=== PATIENT | male | born 1990 | race Two or more races ===

== ENCOUNTER 2018-07-20 02:48 | Emergency (ER) | payer MEDICAID ==
[~2018-07-20] VITALS: Ht 160 cm; Wt 73.1 kg
[2018-07-20 04:22] VITALS: BP 125/87
== END 2018-07-20 04:22 | disposition home or self-care (01) ==
LOC: ED 02:48
DX: J11.1 Influenza due to unidentified influenza virus with other respiratory manifestations (principal)
CPT/HCPCS: J1885; J7030

== ENCOUNTER 2019-09-19 03:01 | Emergency (ER) | payer SELFPAY ==
[~2019-09-19] VITALS: Ht 160 cm; Wt 74.8 kg
[2019-09-19 03:13] VITALS: Ht 160 cm; Wt 74.8 kg
[2019-09-19 06:53] LABS: PLATELET COUNT 181 x10^3mcL (130-400); RED CELL DISTRIBUTION WIDTH 12.4 % (11.5-14.5)
[2019-09-19 07:05] LABS: CALCIUM 7.7 mg/dL (8.5-10.1); CARBON DIOXIDE 29.7 mmol/L (21-32); CHLORIDE SERUM 107 mmol/L (98-107); CREATININE SERUM 0.7 mg/dL (0.7-1.3); GFR1 > 60 mL/min; GLUCOSE SERUM 107 mg/dL (74-106); POTASSIUM SERUM 4.1 mmol/L (3.5-5.1); SODIUM SERUM 140 mmol/L (136-145)
[2019-09-19 07:09] LABS: ALKALINE PHOSPHATASE 75 U/L (46-116); ALT/SGPT 29 U/L (16-63); AMYLASE 59 U/L (25-115); AST/SGOT 18 U/L (15-37); LIPASE 101 IU/L (73-393)
[2019-09-19 07:10] LABS: ALBUMIN 2.9 g/dL (3.4-5.0); TOTAL PROTEIN, SERUM 5.9 g/dL (6.4-8.2)
[2019-09-19 07:13] LABS: BASOPHIL % 0 % (0-2)
[2019-09-19 08:59] VITALS: BP 109/58
== END 2019-09-19 08:59 | disposition home or self-care (01) ==
LOC: ED 03:01
PROVIDERS: Emergency Medicine
DX: R11.2 Nausea with vomiting, unspecified (principal); R10.13 Epigastric pain
CPT/HCPCS: C9113; J2405; J7030

== ENCOUNTER 2019-11-17 19:50 | Emergency (ER) | payer MEDICAID ==
[~2019-11-17] VITALS: Ht 160 cm; Wt 74.8 kg
[2019-11-17 20:00] VITALS: Ht 160 cm; Wt 74.8 kg
[2019-11-17 20:26] LABS: BASOPHIL % 0.7 % (0-2); PLATELET COUNT 196 x10^3mcL (130-400); RED CELL DISTRIBUTION WIDTH 12.5 % (11.5-14.5)
[2019-11-17 20:35] LABS: CALCIUM 9.6 mg/dL (8.5-10.1); CARBON DIOXIDE 32.3 mmol/L (21-32); CHLORIDE SERUM 100 mmol/L (98-107); CREATININE SERUM 0.7 mg/dL (0.7-1.3); GFR1 > 60 mL/min; GLUCOSE SERUM 118 mg/dL (74-106); POTASSIUM SERUM 4.2 mmol/L (3.5-5.1); SODIUM SERUM 138 mmol/L (136-145)
[2019-11-17 20:40] LABS: ALKALINE PHOSPHATASE 92 U/L (46-116); ALT/SGPT 32 U/L (16-63); AST/SGOT 19 U/L (15-37); BILIRUBIN TOTAL 0.33 mg/dL (0.20-1.00); LIPASE 160 IU/L (73-393); TOTAL PROTEIN, SERUM 7.4 g/dL (6.4-8.2)
[2019-11-17 21:48] VITALS: BP 160/84
== END 2019-11-17 21:48 | disposition home or self-care (01) ==
LOC: ED 19:50
PROVIDERS: Emergency Medicine
DX: K29.70 Gastritis, unspecified, without bleeding (principal)
CPT/HCPCS: 36415; Q0092

== ENCOUNTER 2020-06-01 19:20 | Emergency (ER) | payer MEDICAID, SELFPAY ==
[~2020-06-01] VITALS: Ht 193 cm; Wt 72.1 kg
[2020-06-01 19:26] VITALS: Ht 193 cm; Wt 72.1 kg
[2020-06-01 19:57] LABS: BASOPHIL % 0.7 % (0-2); PLATELET COUNT 160 x10^3mcL (130-400); RED CELL DISTRIBUTION WIDTH 12.7 % (11.5-14.5)
[2020-06-01 21:19] VITALS: BP 113/66
== END 2020-06-01 21:19 | disposition home or self-care (01) ==
LOC: ED 19:20
PROVIDERS: Emergency Medicine
DX: B34.9 Viral infection, unspecified (principal); Z20.828 Contact with and (suspected) exposure to other viral communicable diseases
CPT/HCPCS: J1885; U0003